=== PATIENT | female | born 1990 | race Caucasian/White ===

== ENCOUNTER → 2016-07-19 | Outpatient (CLI) | payer BC ==
[~2016-07-19] MED LIST: AMBIEN 5 MG TABL5 M1 PO; ATIVAN0.5 MG PO; NAPROSYN500 MG PO; QUASENSE1 EACH PO
== END ==
LOC: CAT 14:48
DX: R31.9 Hematuria, unspecified (principal); R10.9 Unspecified abdominal pain; M54.9 Dorsalgia, unspecified; N83.202 Unspecified ovarian cyst, left side; N83.201 Unspecified ovarian cyst, right side

== ENCOUNTER → 2016-10-21 | Outpatient (CLI) | payer BC | LOC: ULTRA 08:19 | DX: I10 Essential (primary) hypertension (principal) ==